=== PATIENT | male | born 1955 | race Two or more races ===

== ENCOUNTER 2024-07-23 21:21 | Emergency (ER) | payer OTHER ==
[~2024-07-23] VITALS: Ht 185.4 cm; Wt 121.1 kg
[2024-07-24] MEDS ORDERED: TETANUS & DIPHTHERIA TOX,ADULT 0.5 ML VIAL IM STA (00:49)
== END 2024-07-24 01:11 | disposition home or self-care (01) ==
LOC: ER 21:23
DX: S01.81XA Laceration without foreign body of other part of head, initial encounter (principal); S09.90XA Unspecified injury of head, initial encounter; W19.XXXA Unspecified fall, initial encounter; Y93.89 Activity, other specified; Y92.098 Other place in other non-institutional residence as the place of occurrence of the external cause; Y99.8 Other external cause status
CPT/HCPCS: 12011; 70450; 90471; 90714; 99284; J1670

== ENCOUNTER 2025-01-19 22:24 | Emergency (ER) | payer OTHER ==
[~2025-01-19] VITALS: Ht 177.8 cm; Wt 73.9 kg
[2025-01-20] MEDS ORDERED: GUAIFENESIN 200 MG/10 ML BLIST.PACK PO STA (01:08)
[2025-01-20] MEDS ORDERED: KETOROLAC TROMETHAMINE 10 MG TABLET PO STA (01:09)
[2025-01-20] MEDS ORDERED: KETOROLAC TROMETHAMINE 10 MG TABLET PO ONE (01:31)
[2025-01-20] MEDS ORDERED: GUAIFENESIN/DEXTROMETHORPHAN 100MG/10ML BLIST.PACK PO ONE (01:32)
[2025-01-20 01:54] LABS: HEMATOCRIT 46.3 % (39.0-48.0); HEMOGLOBIN 15.4 g/dL (13-16.00); MEAN CELL VOLUME 85.9 fL (80.0-100.00); MEAN CORPUSCULAR HEMOGLOBIN 28.5 pg (27.00-32.0); MEAN CORPUSCULAR HGB CONC 33.2 g/dl (32.0-36.0); PLATELET COUNT 229 K/uL (150-450); RED BLOOD COUNT 5.39 M/uL (4.00-6.00); RED CELL DISTRIBUTION WIDTH 13.6 % (11.5-14.5)
[2025-01-20 02:39] LABS: COVID-19 AG NEGATIVE (NEGATIVE)
[2025-01-20 03:48] LABS: INFLUENZA A AG NEGATIVE (NEGATIVE)
[2025-01-20] MEDS ORDERED: ZYNCOF 20-400120 ML PO (03:53)
[2025-01-20] MEDS ORDERED: MELOXICAM15 MG PO (03:54)
== END 2025-01-20 04:00 ==
LOC: ER 22:24
PROVIDERS: General Practice
DX: R07.89 Other chest pain (principal); R05.9 Cough, unspecified; R53.81 Other malaise; Z20.822 Contact with and (suspected) exposure to COVID-19